=== PATIENT | female | born 1955 | race Caucasian/White ===

== ENCOUNTER 2020-11-30 01:28 | Emergency (ER) | payer OTHER, MEDICAID ==
[~2020-11-30] VITALS: Ht 180.3 cm; Wt 116.6 kg
[~2020-11-30 01:28] MED LIST: ACCUNEB SO1.25 MG/1 INH; ACETAMINOPHEN-1 EAC1 PO; ACETAMINOPHEN325 M1 PO; ADULT LOW DOSE81 MG PO; ALBUTEROL2.5 MG/31 INH; AMOXICILLIN 50500 M1 PO; APAP500 PO; ASPIR 8181 MG PO; ASPIRIN325 PO; ATORVASTATIN CA40 MG PO; AZITHROMYCIN 2250 MG PO; CARVEDILOL12.5 MG PO; CIPROFLOXACIN500 M1 PO; CO Q-10100 MG; CO-ENZYME Q-1010 MG PO; COLACE100 MG PO; COREG6.25 MG PO; DULERA 100 MCG/13 GM; EFFIENT10 MG PO; FISH OIL 1,0001 EAC5 PO; FISH OIL 1,2001 EAC3 PO; FISH OIL 1,4001 EACH PO; GLYBURIDE 5 MG T5 M1 OR; HCTZ; IRON325 M1 PO; LANTUS SQ; LANTUS100 UNIT/M SUBQ; LASIX 40 MG TAB40 M2 PO; LEVAQUIN 750 M750 MG PO; LEVOTHYROXIN0.075 MG PO; LEVOTHYROXINE0.05 MG PO; LISINOPRIL10 MG PO; LISINOPRIL5 MG PO; MACROBID 100 M100 M1 PO; METFORMIN 500500 MG PO; MULTIVITAMIN; MULTIVITAMINS1 EAC7 PO; NIACIN 500 MG500 M1 PO; NITROGLYCERIN0.4 MG SL; NOVOLOG100 UNIT/1 SUBQ; PREDNISONE 20 M20 MG PO; PREDNISONE50 MG PO; PROAIR HFA8.5 GM PO; PROTONIX40 M2 PO; PROVENTIL IH; ROBAFEN AC SYR120 ML PO; SYNTHROID75 MCG PO; TESSALON200 MG PO; TOBRAMYCIN SULFA5 M1 OP; ULTRAM 50MG TAB50 MG PO; VICODIN 5-5001 EACH PO; VITAMIN D-32000 UNIT PO; ZOFRAN4 MG PO
[2020-11-30] MEDS ORDERED: ACETAMINOPHEN (01:43)
[2020-11-30] MEDS ORDERED: CARBIDOPA-LEVO1 EAC9 PO (01:45)
[2020-11-30] MEDS ORDERED: CELEXA 20 MG TA20 MG PO (01:46)
[2020-11-30] MEDS ORDERED: VITAMIN B-121000 MC2 SUBLING (01:47)
[2020-11-30] MEDS ORDERED: GLIPIZIDE 10 MG10 MG PO (01:48)
[2020-11-30] MEDS ORDERED: LOPERAMIDE2 MG PO (01:49)
[2020-11-30] MEDS ORDERED: TRAMADOL 50 MG50 MG PO (01:51)
[2020-11-30] MEDS ORDERED: HUMULIN N100 UNIT/3 SUBQ (01:51)
[2020-11-30 07:20] VITALS: BP 123/60
--- NOTE | 2020-11-30 16:36 | EKG ---
[place] [address] ELECTROCARDIOGRAM REPORT Name: CARLOS BARTLETT Room: [facility]#: [id number] Admission: 11/30/20 Attend Phys: Discharge: 11/30/20 Date of : 53 Date of Service: 11/30/207 Report #: [id number] THIS REPORT FOR: //name// [facility] ED Test Date: 2020-11-30 Test Time: 01:37:51 Pat Name: CARLOS BARTLETT Department: Room: Gender: F Senior Marketing Data Analyst: JEF : 1955 Requested By: Lisa Silveira Order Number: [id number] Kamini MD: Chao Vance Measurements Intervals [place] Rate: 66 P: 0 CA: 57 QRS: -63 QRSD: 126 T: 88 QT: 430 QTc: 451 Interpretive Statements A-V dual-paced rhythm with some inhibition No further analysis attempted due to paced rhythm Baseline wander in lead(s) II,III,aVF Compared to ECG 09/09/2015 21:54:41 Atrial-sensed complexes no longer present Electronically Signed On 11-30-2020 16:35:53 CDT by Chao Vance [email or web address] <ELECTRONICALLY SIGNED> By: Chao Vance MD, FACC 11/30/20 1635 Chao Vance MD, [facility] /EPI
== END 2020-11-30 10:59 | disposition home or self-care (01) ==
LOC: M.ERS 01:28
DX: M25.551 Pain in right hip (principal); R07.81 Pleurodynia; R07.89 Other chest pain; I11.0 Hypertensive heart disease with heart failure; I50.9 Heart failure, unspecified; J45.909 Unspecified asthma, uncomplicated; F32.9 Major depressive disorder, single episode, unspecified; E11.9 Type 2 diabetes mellitus without complications; Z90.49 Acquired absence of other specified parts of digestive tract; Z95.0 Presence of cardiac pacemaker; Z79.899 Other long term (current) drug therapy; Z79.82 Long term (current) use of aspirin; Z91.048 Other nonmedicinal substance allergy status; Z88.8 Allergy status to other drugs, medicaments and biological substances; Z88.2 Allergy status to sulfonamides; Z88.1 Allergy status to other antibiotic agents; W19.XXXA Unspecified fall, initial encounter; Y93.89 Activity, other specified; Y92.89 Other specified places as the place of occurrence of the external cause; Y99.8 Other external cause status